=== PATIENT | female | born 1980 | race Hispanic/Latino ===

== ENCOUNTER 2021-08-22 14:00 | Inpatient (IN) | payer BC ==
[~2021-08-22] VITALS: Ht 176.5 cm; Wt 101.5 kg
[2021-08-25 10:25] VITALS: BP 138/92
[2021-08-25 10:36] LABS: BASOPHILS % (AUTO) 0.6 % (0.0-5.0); EOSINOPHILS % (AUTO) 1.4 % (0.0-8.0); HEMATOCRIT 40.6 % (36-48); LYMPHOCYTES % (AUTO) 31.7 % (21.0-51.0); MEAN CORPUSCULAR HEMOGLOBIN 29.9 pg (27.0-33.0); MEAN CORPUSCULAR HGB CONC 32.8 g/dL (32.0-36.0); MEAN CORPUSCULAR VOLUME 91.2 fL (79-99); MONOCYTES % (AUTO) 6.9 % (3.0-13.0); NEUTROPHILS % (AUTO) 59.1 % (40.0-77.0); PLATELET COUNT (AUTO) 338 K/uL (130-400); RED BLOOD CELL COUNT(AUTO) 4.45 MIL/uL (4.00-5.50); RED CELL DISTRIBUTION WIDTH 12.5 % (11.0-15.5); WHITE BLOOD COUNT (AUTO) 6.2 K/uL (4.8-10.8)
[2021-08-28] MEDS ORDERED: ESCI-8 PO (12:45)
[2021-08-28] MEDS ORDERED: LOSA1TAB37 PO (12:45)
[2021-08-28] MEDS ORDERED: NORE0.3520 PO (12:45)
[2021-08-28] MEDS ORDERED: ELAG150T PO (12:45)
[2021-08-28] MEDS ORDERED: CHOL-9 PO (12:45)
[2021-08-29] VITALS (24 sets, daily range): BP systolic 108–141; BP diastolic 63–91
[2021-08-29] MEDS ORDERED: CEFAZOLIN SODIUM 100 GM IV SCH (06:00)
[2021-08-29] MEDS ORDERED: LACTATED RINGERS 1000ML 1,000 ML IV ONE (06:13)
[2021-08-29] MEDS ORDERED: CEFAZOLIN SODIUM 1 GM VIAL ONE (06:14)
[2021-08-29] MEDS ORDERED: CALDOLOR 800MG+NS 250ML 250 ML IV ONE (07:00)
[2021-08-29] MEDS ORDERED: ROCURONIUM 10MG/1ML SYR 10 MG/ML ML ONE ×2 (07:09→08:48)
[2021-08-29] MEDS ORDERED: LIDOCAINE PF 100MG/5ML (2%) SYRINGE 5ML ONE (07:09)
[2021-08-29] MEDS ORDERED: FENTANYL CITRATE PF 50 MCG/1 ML 2ML VIAL ONE ×3 (07:09→09:45)
[2021-08-29] MEDS ORDERED: MIDAZOLAM HCL 1 MG/ML 2ML VIAL ONE (07:09)
[2021-08-29] MEDS ORDERED: PROPOFOL 10 MG/ML 20ML VIAL IV ONE (07:09)
[2021-08-29] MEDS ORDERED: MEPERIDINE-PF 75 MG/ML SYG IM PRN (10:30)
[2021-08-29] MEDS ORDERED: PROMETHAZINE HCL 25 MG/ML 1ML AMPULE IM PRN ×2 (10:30)
[2021-08-29] MEDS ORDERED: SIMETHICONE 80 MG TAB.CHEW PO PRN (10:30)
[2021-08-29] MEDS ORDERED: ONDANSETRON 4MG INJ IVP PRN ×2 (10:30→17:30)
[2021-08-29] MEDS ORDERED: HYDROCODONE/ACETAMINOPHEN 5/325 MG TAB PO PRN (10:30)
[2021-08-29] MEDS ORDERED: DOCUSATE SODIUM 100 MG CAP PO PRN (10:30)
[2021-08-29] MEDS ORDERED: BISACODYL 10 MG SUPP.RECT RC PRN (10:30)
[2021-08-29] MEDS ORDERED: MEPERIDINE-PF 25 MG/ML SYG ONE (10:33)
[2021-08-29] MEDS: PHENAZOPYRIDINE HCL 200 MG TABLET PO SCH (12:02)
[2021-08-29] MEDS: DEXTROSE 5 %-0.45 % NACL 1,000 ML IV PRN ×2 (12:02→18:40)
[2021-08-29] MEDS ORDERED: LACTATED RINGERS 1000ML 1,000 ML IV SCH (15:30)
[2021-08-29] MEDS: ROPIVACAINE 0.2% 100ML VIAL 100 ML EP SCH ×2 (17:22→23:06)
[2021-08-29] MEDS ORDERED: EPHEDRINE SULFATE 50 MG/ML AMPULE IVP PRN (17:30)
[2021-08-29] MEDS ORDERED: DiphenhydrAMINE HCL 50 MG/ML VIAL IVP PRN (17:30)
[2021-08-29] MEDS ORDERED: NALOXONE HCL 0.4 MG/1 ML ML IVP PRN ×3 (17:30)
[2021-08-29] MEDS: CALDOLOR 800MG+NS 250ML 250 ML IVPB SCH (18:36)
[2021-08-29] MEDS ORDERED: NITROFURANTOIN MONOHYD/M-CRYST 100 MG CAPSULE PO SCH (21:00)
[2021-08-30] MEDS: PHENAZOPYRIDINE HCL 200 MG TABLET PO SCH ×3 (02:30→10:40)
[2021-08-30] MEDS: CALDOLOR 800MG+NS 250ML 250 ML IVPB SCH (02:32)
[2021-08-30 02:55] VITALS: BP 128/83
[2021-08-30] MEDS: ACETAMINOPHEN WITH CODEINE 1 TAB TAB PO PRN ×2 (05:02→09:55)
[2021-08-30 07:14] VITALS: BP 106/71
[2021-08-30] MEDS ORDERED: IBUPROFEN 800 MG TAB PO SCH (10:30)
[2021-08-30 11:32] VITALS: BP 114/73
== END 2021-08-30 15:20 | disposition home or self-care (01) | DRG 743 ==
LOC: DAHIP 08-29 05:54 → WSH 08-29 11:10
PROVIDERS: ADMIT Obstetrics & Gynecology; ATTEND Obstetrics & Gynecology
PROC: 0UT90ZZ Resection of Uterus, Open Approach (ICD-10-PCS; principal; 2021-08-29 07:36)
PROC: 0UB70ZZ Excision of Bilateral Fallopian Tubes, Open Approach (ICD-10-PCS; 2021-08-29 07:36)
PROC: 0TQB0ZZ Repair Bladder, Open Approach (ICD-10-PCS; 2021-08-29 07:36)
DX: N80.9 Endometriosis, unspecified (principal); N73.6 Female pelvic peritoneal adhesions (postinfective); Z20.822 Contact with and (suspected) exposure to COVID-19
CPT/HCPCS: 36415; 84703; 85025; 86850; 86900; 86901; 87635; A4344; G0378; J0690; J1741; J2001; J2175; J2250; J2550; J2704; J2795; J3010; J7030; J7120